=== PATIENT | male | born 2005 | race Caucasian/White ===

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

== ENCOUNTER 2023-03-05 09:11 | Emergency (ER) | payer OTHER, SELFPAY ==
[2023-03-05 09:14] VITALS: BP 132/83; PULSE 62; RESP 14; TEMP 36.6; O2SAT 99
--- NOTE | 2023-03-05 09:23 | ED.GENADUL_ITS ---
Discharge Plan Disposition Patient Disposition: Home Condition: Stable Discharge Details Clinical Impression: Finger laceration Primary Care Provider: Suzy Farias ED Provider: Bambi Do Home Meds and New Rx's Prescriptions: No Action No Known Home Meds Discharge Instructions Instructions: Finger Laceration (ED) Additional Instructions: Ibuprofen and Tylenol as needed for pain Keep wounds clean and dry, change dressing once a day and wash with soap and water Leave this dressing on that was placed today for the next 2 to 3 days as tolerated After 3 days allow to air dry at night and wear dressing during the day Limit use of the affected finger We will remove the sutures in 10 to 12 days, please return for reassessment at that time Stand Alone Forms: Work Release Discharge Data Discharge Date/Time-TO BE ENTERED AT DEPARTURE: 03/05/23 10:44 Medical Decision Making This 17-year-old male presents with laceration to left third digit, neurovascularly intact, tetanus up-to-date, 2015 Wound cleansed No indication for x-ray at this time Neurovascularly intact Sutures placed by me, suture removal in 10 to 12 days Patient is aware that he is in risk for nonviable tissue secondary to flap of skin, he may need debridement if the tissue does not revascularize HPI General Date/Time Provider Initiated Documentation: 03/05/23 10:31 . 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 Denies any additional injuries. Tetanus up-to-date. Denies strength or sensation change. Related Data Home Medications Medication Instructions Recorded Confirmed Unknown [No Known Home Meds] 05/09/22 09/06/22 Allergies Allergy/AdvReac Type Severity Reaction Status Date / Time enviornmental Allergy Mild Wheezing Uncoded 09/06/22 13:35 General Stated Complaint: Laceration GABI: 3 PFSH All Active Problems (Updated 03/05/23 @ 10:33 by FIONA Pineda) Finger laceration (Acute) COVID-19 (Acute) Fracture of thumb (Acute) Muscle spasm (Acute) Scoliosis deformity of spine (Acute) Chronic abdominal pain (Acute) Weight loss (Acute) Pes planus of both feet (Acute) Alcohol abuse (Chronic) Headache (Acute) Anxiety (Chronic) Depression (Chronic) Right-sided thoracic back pain (Acute) Acne (Acute) Healthy adolescent (Acute) Medical History Mild intermittent asthma no meds for a couple years 04/26 Family History Mother Healthy adult on routine physical examination Anxiety and depression Father Essential hypertension Hyperlipidemia Other Alcohol abuse MGM Hyperlipidemia PGF Pulmonary embolism PGGM Social History Smoking/Tobacco Use Status: Never Second Hand Exposure: Yes Smoking risk assessment performed?: Yes Alcohol Intake: never Drug use: Daily Substance use type: does not use and marijuana current occupation: working in [employer] Pets and animals: Yes Pets and animals: dog(s) Current gender identity: male What type of physical activity do you participate in: other Details: Basketball , baseball, snowboard Seatbelt use: always Helmet use: Yes Helmet use: sometimes Fire extinguisher in home: Yes Firearms in home: Yes Firearms unloaded and locked: Yes Do you feel safe at home: Yes Do you feel safe in your relationship?: Yes Course Vital Signs Vital signs: Vital Signs Temperature 36.6 C 03/05/23 09:14 Pulse 62 03/05/23 09:14 Respiratory Rate 14 03/05/23 09:14 Blood Pressure 132/83 03/05/23 09:14 Pulse Oximetry 99 03/05/23 09:14 Temperature 36.6 C 03/05/23 09:14 Temperature Source Oral 03/05/23 09:14 Pulse 62 03/05/23 09:14 Respiratory Rate 14 03/05/23 09:14 Blood Pressure 132/83 03/05/23 09:14 Blood Pressure Position Sitting 03/05/23 09:14 Pulse Oximetry 99 03/05/23 09:14 Oxygen Delivery Method Room Air 03/05/23 09:14 Oxygen Flow Rate 0 03/05/23 09:14 Pain Level 5 03/05/23 09:14 Procedures Laceration Laceration 1: Site: hand Side (If applicable): left Size (cm): 1 Description: flap Depth: simple, single layer Local Anesthetic: Lidocaine 1% Amount of anesthesia used (mL): 3 Pre-repair: wound explored Skin layer closed with: other Size (cm): 4-0 Number of sutures: 6 Technique: simple, interrupted
[2023-03-05 10:43] VITALS: BP 118/74; PULSE 64; RESP 12; O2SAT 99
== END 2023-03-05 10:44 | disposition home or self-care (01) ==
PROVIDERS: Emergency Provider Physician Assistant; PCP Nurse Practitioner Family
DX: S61.213A Laceration without foreign body of left middle finger without damage to nail, initial encounter (principal); W26.0XXA Contact with knife, initial encounter; Y99.0 Civilian activity done for income or pay
CPT/HCPCS: 12001

== ENCOUNTER 2023-05-29 16:22 | Emergency (ER) | payer SELFPAY ==
[2023-05-29 16:25] VITALS: BP 160/86; PULSE 100; RESP 16; TEMP 36.5; O2SAT 100
--- NOTE | 2023-05-29 16:41 | W.ED.GENAD ---
Discharge Plan Disposition Patient Disposition: Home Condition: Stable Discharge Details Clinical Impression: Cervical muscle strain Primary Care Provider: Suzy Farias ED Provider: Sumit Hoang Home Meds and New Rx's Prescriptions: New cyclobenzaprine 10 mg tablet 10 mg PO TID PRN (Reason: cervical strain) Qty: 30 0RF ketorolac 10 mg tablet 10 mg PO QID PRN (Reason: cervical strain) 5 Days Qty: 20 0RF Discharge Instructions Instructions: Cyclobenzaprine (By mouth), Ketorolac (By mouth), Cervical Strain (ED) Additional Instructions: You were seen in the emergency department for your left lateral neck muscle strain. You need to gently massage the area apply gentle heat to the area. You can purchase [id number] lidocaine patches which we applied here in the emergency department today, use these once per day for 12 hours. Take 1000 mg of Tylenol every 6 hours consistently for the next 5 days, senior living in between Tylenol doses please take the prescribed anti-inflammatory ketorolac also 4 times per day or every 6 hours. Do not use ibuprofen and ketorolac at the same time. Use the prescribed muscle relaxer cyclobenzaprine 3 times per day as needed for muscle relaxation, do not operate heavy machinery or drive on this medication. You may follow-up with your primary care provider or seek an uld-dr-[id number] visit with any of the chiropractors in the area or physical therapy visits. Please return for any complete numbness of the left arm or other neurologic abnormality. Referrals: Suzy Farias, RENTAL COUNTER CLERK [Primary Care Provider] - Discharge Data Discharge Date/Time-TO BE ENTERED AT DEPARTURE: 05/29/23 17:03 Medical Decision Making This dictation utilizes [id number] dictation software and may contain unedited grammatical errors. 17 y/o M presents to ED today with a chief complaint of L neck/shoulder pain. Onset and characteristics include onset for a couple days, L lateral neck pain/shoulderblade pain. Patients' medical history: negative, otherwise healthy. Family and social history: noncontributory. Pertinent exam findings / vital signs include palpable tension in L trapezius, normal cervical ROM, L UE NV intact. Differential / pathologies of concern include cervical muscle strain, cervical radiculopathy, not vertebral cord or column injury. Diagnostic studies of: -none. Interventions of: -APAP, Toradol, Cyclobenzaprine, Topical LidoDerm, one dose dexamethasone. ED Course: Counseled the 17-year-old otherwise healthy male in likely musculoskeletal left shoulder and neck pain, counseled on applying gentle heat to the area as well as massage, following up with chiropractic or physical therapy and performing adequate dosing Tylenol and ibuprofen as well as topical heat, muscle relaxers, topical lidocaine. Findings not consistent with spinal cord or column injury, no nuchal rigidity- full cervical ROM, no risk factors for SEA. Disposition of Cervical Muscle Strain. Patient verbalized understanding of the plan and return to ED criteria and engaged in shared decision making. Medical Records Medical records reviewed: Yes I reviewed the patient's medical records. HPI General Date/Time Provider Initiated Documentation: 05/29/23 16:38. HPI Narrative: 17 year-old male presents to ED today by POV/ambulating with his girlfriend with a chief complaint of L lateral neck pain with onset for a few days. Quality described as sharp pain, worse with movement, localized to the left trapezius/scalenes areas, no radiation to L arm weakness/tingling/numbness, midline cervical tenderness, fever, tinnitus, visual changes, denies trauma. Severity is described as 8-9/10. Palliating factors include nothing specific attempted. Provoking factors include unsure if he slept on it wrong, does work out. Patient not anticoagulated. Related Data Home Medications Medication Instructions Recorded Confirmed cyclobenzaprine 10 mg tablet 10 mg PO TID PRN cervical strain 05/29/23 #30 tabs ketorolac 10 mg tablet 10 mg PO QID PRN cervical strain 5 05/29/23 days #20 tabs Previous Rx's Medication Instructions Recorded cyclobenzaprine 10 mg tablet 10 mg PO TID PRN cervical strain 05/29/23 #30 tabs ketorolac 10 mg tablet 10 mg PO QID PRN cervical strain 5 05/29/23 days #20 tabs Allergies Allergy/AdvReac Type Severity Reaction Status Date / Time enviornmental Allergy Mild Wheezing Uncoded 05/29/23 16:38 General Stated Complaint: Nk/Back Pain GABI: 4 Review of Systems All systems reviewed & are unremarkable except as noted in HPI and below PFSH All Active Problems (Updated 05/29/23 @ 16:46 by FIONA Molina) Cervical muscle strain (Acute) COVID-19 (Acute) Fracture of thumb (Acute) Muscle spasm (Acute) Scoliosis deformity of spine (Acute) Chronic abdominal pain (Acute) Weight loss (Acute) Pes planus of both feet (Acute) Alcohol abuse (Chronic) Headache (Acute) Anxiety (Chronic) Depression (Chronic) Right-sided thoracic back pain (Acute) Acne (Acute) Healthy adolescent (Acute) Medical History Mild intermittent asthma no meds for a couple years 04/26 Family History Mother Healthy adult on routine physical examination Anxiety and depression Father Essential hypertension Hyperlipidemia Other Alcohol abuse MGM Hyperlipidemia PGF Pulmonary embolism PGGM Social History Smoking/Tobacco Use Status: Never Second Hand Exposure: Yes Smoking risk assessment performed?: Yes Alcohol Intake: never Drug use: Daily Substance use type: does not use and marijuana current occupation: working in [employer] Pets and animals: Yes Pets and animals: dog(s) Current gender identity: male What type of physical activity do you participate in: other Details: Basketball, baseball, snowboard Seatbelt use: always Helmet use: Yes Helmet use: sometimes Fire extinguisher in home: Yes Firearms in home: Yes Firearms unloaded and locked: Yes Do you feel safe at home: Yes Do you feel safe in your relationship?: Yes Exam Narrative Exam Narrative: GENERAL APPEARANCE: Well-nourished, non-toxic, awake and alert, atraumatic, no acute distress. SKIN: Warm, pink, dry, intact, without rashes/lesions/ulcerations. HEAD: Normocephalic, atraumatic, normal hair distribution for gender/age. EYES: Pupils PERRLA, EOMs intact without nystagmus, normal conjunctiva, no exudates on lids/lashes. ENT: Nares patent, no circumoral cyanosis, no facial swelling NECK: Supple, trachea midline, painless cervical ROM. LUNGS/CHEST: Non-labored respirations, normal A/P diameter, symmetrical expansion, no chest wall deformity HEART (CV/PV): No peripheral edema, no JVD. ABDOMEN: Soft, non-distended, no guarding. MSK: Normal ROM, no swelling/deformity to bilateral UEs or LEs, moving all extremities without weakness, no cyanosis, spine midline without tenderness, normal curvature. TTP to L trapezius with palpable muscle tension, cervical ROM WNL, NV intact L UE, dental assistant medical assistant strength 5/5, L radiaul pulse 2+, no midline cervical tenderness, no skin changes NEURO: Mental Status AAOx4 - alert to person, place, time, events No facial droop, no forehead involvement. Motor: No focal weakness - strength 5/5 in bilateral UEs and LEs, proximal and distal, symmetric. Sensory: sensation intact to light touch globally. Gait normal: patient ambulated without ataxia into ED room. PSYCH: euthymic, cooperative, pleasant, appropriate speech Course Vital Signs Vital signs: Vital Signs Temperature 36.5 C 05/29/23 16:25 Pulse 100 H 05/29/23 16:25 Respiratory Rate 16 05/29/23 16:25 Blood Pressure 160/86 H 05/29/23 16:25 Pulse Oximetry 100 05/29/23 16:25 Temperature 36.5 C 05/29/23 16:25 Temperature Source Tympanic 05/29/23 16:25 Pulse 100 H 05/29/23 16:25 Respiratory Rate 16 05/29/23 16:25 Blood Pressure 160/86 H 05/29/23 16:25 Blood Pressure Position Sitting 05/29/23 16:25 Pulse Oximetry 100 05/29/23 16:25 Oxygen Delivery Method Room Air 05/29/23 16:25 Oxygen Flow Rate 0 05/29/23 16:25 Pain Level 10 05/29/23 16:25
[2023-05-29] MEDS: Acetaminophen 500 MG TAB 1000 MG PO (16:49)
[2023-05-29] MEDS: Cyclobenzaprine 10 MG TAB PO (16:57)
[2023-05-29] MEDS: Lidocaine 5% Patch 1 PATCH TP (16:57)
[2023-05-29] MEDS: Dexamethasone 4 MG TAB PO (16:57)
[2023-05-29] MEDS: Ketorolac 10 MG TAB PO (16:57)
== END 2023-05-29 17:03 | disposition home or self-care (01) ==
PROVIDERS: Emergency Provider Physician Assistant; PCP Nurse Practitioner Family
DX: M25.512 Pain in left shoulder (principal); M54.2 Cervicalgia; S16.1XXA Strain of muscle, fascia and tendon at neck level, initial encounter; X58.XXXA Exposure to other specified factors, initial encounter
CPT/HCPCS: 80053; 84145; 85652; 87040; 99283; 83605; 85025; 86140; J8540

== ENCOUNTER 2023-09-07 17:20 | Emergency (ER) | payer SELFPAY ==
[2023-09-07 17:23] VITALS: BP 141/57; PULSE 97; RESP 16; TEMP 36.5; O2SAT 97
--- NOTE | 2023-09-07 17:40 | W.ED.GENAD ---
Discharge Plan Discharge Details Chief Complaint: Orthopedic Primary Care Provider: Suzy Farias ED Provider: Shanda Ortez Home Meds and New Rx's Prescriptions: No Action No Known Home Meds HPI General Date/Time Provider Initiated Documentation: 09/07/23 17:21. HPI Narrative: Desean is a 18 year old male who presents to the emergency dept for evaluation of L elbow pain s/p fall. He reports that he fell into a tree while he was snowboarding, hitting the left arm and left leg. He denies head injury, headache, dizziness, vision change, nausea/vomiting, neck pain, back pain, difficulty breathing, shoulder pain, wrist pain, hand injury. He is right-handed. He does report that he sustained a bruise to his left thigh, but is able to move the leg without issue and declines to have this examined today. He is able to walk without difficulty. No significant past medical history or previous injury to this arm. . He took Arnica prior to arrival to the emergency department. He lives locally. Related Data Home Medications Medication Instructions Recorded Confirmed Unknown [No Known Home Meds] 09/07/23 09/07/23 Allergies Allergy/AdvReac Type Severity Reaction Status Date / Time enviornmental Allergy Mild Wheezing Uncoded 09/07/23 17:23 General Stated Complaint: Orthopedic GABI: 4 Review of Systems Narrative: see HPI Exam Const General: cooperative, healthy appearing and no acute distress Resp Effort & Inspection: normal respiratory effort and able to speak in complete sentences Neuro General: patient alert and patient awake Extrem General: normal to inspection and normal gait Right upper extremity: normal to inspection Left upper extremity: elbow/forearm Details: tenderness Location: of the lateral epicondyle and normal ROM (slightly decreased flexion, normal supination/pronation); no swelling, no unusual warmth, no abrasions and no ecchymosis; shoulder/upper arm not examined, wrist not examined and hand not examined Course Vital Signs Vital signs: Vital Signs Temperature 36.5 C 09/07/23 17:23 Pulse 97 H 09/07/23 17:23 Respiratory Rate 16 09/07/23 17:23 Blood Pressure 141/57 H 09/07/23 17:23 Pulse Oximetry 97 09/07/23 17:23 Temperature 36.5 C 09/07/23 17:23 Temperature Source Temporal Artery Scan 09/07/23 17:23 Pulse 97 H 09/07/23 17:23 Respiratory Rate 16 09/07/23 17:23 Respiratory Effort Normal, Non-Labored 09/07/23 17:25 Blood Pressure 141/57 H 09/07/23 17:23 Blood Pressure Position Supine 09/07/23 17:23 Pulse Oximetry 97 09/07/23 17:23 Oxygen Delivery Method Room Air 09/07/23 17:23 Oxygen Flow Rate 0 09/07/23 17:23 Pain Level 8 09/07/23 17:27 Procedures Orthopedic Splinting/Casting Injury #1: Side: left Upper Extremity Injury Location: elbow Upper Extremity Immobilizer: sling/shoulder immobilizer and posterior splint Additional Comments: neurovascular intact, +CMS to fingers Medical Decision Making Desean is a 18 year old male who presents to the emergency dept for evaluation of L elbow pain s/p fall. He reports that he fell into a tree while he was snowboarding, hitting the left arm and left leg. He denies head injury, headache, dizziness, vision change, nausea/vomiting, neck pain, back pain, difficulty breathing, shoulder pain, wrist pain, hand injury. He is right-handed. He does report that he sustained a bruise to his left thigh, but is able to move the leg without issue and declines to have this examined today. He is able to walk without difficulty. No significant past medical history or previous injury to this arm. . He took Arnica prior to arrival to the emergency department. He lives locally. Physical exam remarkable for tenderness with palpation of lateral condyle of the elbow. He does have limited range of motion due to pain. No obvious swelling. No overlying abrasions/lacerations/skin tears. Painless range of motion to left shoulder and left wrist/hand. No tenderness with palpation to left shoulder, collarbone, humerus, wrist, or hand. +CMS to fingers DDx includes was not limited to fracture, contusion, other soft tissue injury Left elbow x-ray significant for suspicion of occult intra-articular radial head fracture with moderate elbow effusion. Patient was placed in posterior long-arm splint and sling applied. Patient tolerated procedure well. Neurovascular intact after procedure. While in the emergency department Desean received ice and APAP for pain control. Reviewed discharge instructions with patient, including plans to follow-up with orthopedics, symptomatic management/pain control, and red flags indicate need for return to emergency care. He is agreeable with plan of care. Quality:SDOH Health Related Social Needs: No Data to Display PFSH All Active Problems (Updated 06/29/23 @ 00:01 by KETURAH LEI) COVID-19 (Acute) Fracture of thumb (Acute) Muscle spasm (Acute) Scoliosis deformity of spine (Acute) Chronic abdominal pain (Acute) Weight loss (Acute) Pes planus of both feet (Acute) Alcohol abuse (Chronic) Headache (Acute) Anxiety (Chronic) Depression (Chronic) Right-sided thoracic back pain (Acute) Acne (Acute) Healthy adolescent (Acute) Medical History Mild intermittent asthma no meds for a couple years 04/26 Family History Mother Healthy adult on routine physical examination Anxiety and depression Father Essential hypertension Hyperlipidemia Other Alcohol abuse MGM Hyperlipidemia PGF Pulmonary embolism PGGM Social History Smoking/Tobacco Use Status: Never Second Hand Exposure: Yes Smoking risk assessment performed?: Yes Alcohol Intake: never Drug use: Daily Substance use type: does not use and marijuana Housing: apartment current occupation: working in [employer] Pets and animals: Yes Pets and animals: dog(s) Current gender identity: male What type of physical activity do you participate in: other Details: Basketball, baseball, snowboard Seatbelt use: always Helmet use: Yes Helmet use: sometimes Fire extinguisher in home: Yes Firearms in home: Yes Firearms unloaded and locked: Yes Do you feel safe at home: Yes Do you feel safe in your relationship?: Yes
--- NOTE | 2023-09-07 17:45 | DI.RAD_ITS ---
Exam(s) XR ELBOW LT COMPLETE EXAM: XR ELBOW LT COMPLETE CLINICAL HISTORY: trauma, pain to elbow. TECHNIQUE: 2D digital imaging was performed. Three views. COMPARISON: No exams were available for comparison FINDINGS: BONES: Mildly depressed intra-articular fracture of the radial head. No additional fractures identif ied. Chronic appearing deformity at the proximal ulna no bony destructive lesion is seen. JOINTS: The elbow is normally aligned. A joint effusion is seen. SOFT TISSUE: Normal. IMPRESSION: Radial head fracture. DATA REPOSITORY: RADIATION DOSE DELIVERED:
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
== END 2023-09-07 19:17 | disposition home or self-care (01) ==
PROVIDERS: Emergency Provider Nurse Practitioner Family; PCP Nurse Practitioner Family
DX: M25.522 Pain in left elbow (principal); M79.652 Pain in left thigh; S52.122A Displaced fracture of head of left radius, initial encounter for closed fracture; W22.8XXA Striking against or struck by other objects, initial encounter; Y93.23 Activity, snow (alpine) (downhill) skiing, snowboarding, sledding, tobogganing and snow tubing
CPT/HCPCS: 29105; 99283; 73080

== ENCOUNTER 2023-09-16 13:23 | Outpatient (CLI) | payer SELFPAY ==
--- NOTE | 2023-09-16 10:32 | DI.RAD_ITS ---
Exam(s) XR ELBOW LT COMPLETE EXAM: XR ELBOW LT COMPLETE CLINICAL HISTORY: f/u L radial head frx. TECHNIQUE: 2D digital imaging was performed of the left elbow. Three images were obtained. AP, lat eral and oblique views were obtained. COMPARISON: CR,XR XR ELBOW LT COMPLETE from 09/07/2023 FINDINGS: BONES: There is again seen a radial head fracture without significant depression. No bony destructiv e lesion is seen. JOINTS: The elbow is normally aligned. There is a persistent small joint effusion. SOFT TISSUE: Normal. IMPRESSION: Stable radial head fracture. DATA REPOSITORY: RADIATION DOSE DELIVERED:
== END 2023-09-16 13:24 | disposition home or self-care (01) ==
LOC: DIORS 13:23
PROVIDERS: PCP Nurse Practitioner Family; Visit Provider Student in an Organized Health Care Education/Training Program
DX: S52.122A Displaced fracture of head of left radius, initial encounter for closed fracture (principal); X58.XXXA Exposure to other specified factors, initial encounter
CPT/HCPCS: 73080

== ENCOUNTER 2023-10-21 15:26 | Outpatient (CLI) | payer SELFPAY ==
--- NOTE | 2023-10-21 10:45 | DI.RAD_ITS ---
Exam(s) XR ELBOW LT COMPLETE EXAM: XR ELBOW LT COMPLETE CLINICAL HISTORY: LEFT RADIAL HEAD FX. TECHNIQUE: 2D digital imaging was performed. Four views. COMPARISON: No exams were available for comparison FINDINGS: BONES: Has been no change in the alignment of the radial head fracture. No bony destructive lesion i s seen. JOINTS: The elbow is normally aligned. No joint effusion is seen. SOFT TISSUE: Normal. IMPRESSION: Stable appearance of radial head fracture. DATA REPOSITORY: RADIATION DOSE DELIVERED:
== END 2023-10-21 15:27 | disposition home or self-care (01) ==
LOC: DIORS 15:52
PROVIDERS: PCP Nurse Practitioner Family; Visit Provider Student in an Organized Health Care Education/Training Program
DX: S52.122D Displaced fracture of head of left radius, subsequent encounter for closed fracture with routine healing (principal); X58.XXXD Exposure to other specified factors, subsequent encounter
CPT/HCPCS: 73080

== ENCOUNTER 2024-11-23 13:12 | Emergency (ER) | payer SELFPAY ==
[2024-11-23 13:14] VITALS: BP 155/92; PULSE 93; RESP 18; TEMP 36.8; O2SAT 96
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
[2024-11-23] MEDS: Ibuprofen 600 MG TAB PO (13:31)
[2024-11-23] MEDS: Acetaminophen 500 MG TAB 1000 MG PO (13:31)
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
== END 2024-11-23 14:12 | disposition home or self-care (01) ==
PROVIDERS: Emergency Provider Emergency Medicine; PCP Nurse Practitioner Family
DX: S69.82XA Other specified injuries of left wrist, hand and finger(s), initial encounter (principal); Y04.0XXA Assault by unarmed brawl or fight, initial encounter
CPT/HCPCS: 99283; 73130

== ENCOUNTER 2025-05-27 18:48 | Outpatient (REF) | payer SELFPAY ==
[2025-05-27 20:22] LABS: ESR 3 mm/hr (0-15)
[2025-05-27 20:37] LABS: ALT 17 U/L (10-49); AST 24 U/L (<34); Albumin 4.9 g/dL (3.4-5.0); Alkaline Phosphatase 73 U/L (46-116); Anion Gap 10.3 mmol/L (3-11); BUN 7 mg/dL (9-23); Bilirubin, Total 0.50 mg/dL (0.2-1.2); CO2 25.7 mmol/L (20.0-31.0); Calcium 9.4 mg/dL (8.3-10.6); Chloride 107 mmol/L (98-107); Glucose 86 mg/dL (74-106); Potassium 4.3 mmol/L (3.5-5.1); Sodium 143 mmol/L (136-145); Total Protein 7.6 g/dL (5.7-8.2)
[2025-05-27 20:55] LABS: Abs Immature Grans 0.03 10^3/uL (0.0-0.06); HCT 45.6 % (40.0-50.0); HGB 15.7 g/dL (13.5-17.5); Immature Grans % 0.3 %; MCH 32.8 pg (27.0-33.0); MCHC 34.4 % (32.0-36.0); MCV 95 fL (80-95); MPV 9.4 fL (8.0-11.0); Platelet Count 323 10^3/uL (130-400); RBC 4.79 10^6/uL (4.36-5.78); RDW 11.9 % (11.8-14.1); RDW-SD 41.8 fL; WBC 9.27 10^3/uL (4.4-10.8)
== END 2025-05-27 18:49 | disposition home or self-care (01) ==
LOC: LBN 18:48
PROVIDERS: Visit Provider Physician Assistant Medical
DX: R21 Rash and other nonspecific skin eruption (principal)
CPT/HCPCS: 80053; 85652; 85025